=== PATIENT | male | born 1940 | race Caucasian/White ===

== ENCOUNTER 2018-05-29 19:26 | Emergency (ER) | payer MEDICARE, OTHER ==
[~2018-05-29] VITALS: Ht 172.7 cm; Wt 87.1 kg
[~2018-05-29 19:26] MED LIST: LEVO75TA6 PO; LOSA1TAB20 PO; LOSA50TA6 PO; LVT.088T PO
--- NOTE | 2018-05-29 19:35 | ED Psychosocial ---
General Stated Complaint: AGRESSIVE BEHAVIOR Source: patient, EMS, [facility] records Exam Limitations: clinical condition (dementia) History of Present Illness Date Seen by Provider: May 29, 2018 Time Seen by Provider: 19:28 Initial Comments The patient presents to ER by private conveyance from [facility] with chief complaint of aggressive behaviors towards staff and they want him sent somewhere for [facility]. Before being at the [facility] he was at [facility] in [place], [place]. For that he was living at home with his girlfriend. She has a history of dementia. EMS reports the patient is calm, redirectable and apologizing. Allergies and Home Medications Allergies Coded Allergies: aspirin (Unverified Allergy, Mild, Hives, 07/09/07) codeine (Unverified Allergy, Mild, Hives, 07/09/07) Home Medications Levothyroxine Sodium 88 Mcg Tab, 88 MCG PO DAILY, (Reported) Losartan Potassium 50 Mg Tablet, 50 MG PO DAILY, (Reported) Patient Home Medication List Home Medication List Reviewed: Yes Review of Systems Constitutional: No chills, No fever, No malaise, No weakness EENTM: No hearing loss, No ear pain Respiratory: No cough, No short of breath Cardiovascular: No chest pain, No edema Gastrointestinal: No abdominal pain, No constipation, No diarrhea Genitourinary: No discharge, No dysuria Musculoskeletal: No back pain, No joint pain Past Lcuqyya-Dzcgcq-Ziwnup Hx Patient Social History Alcohol Use: Denies Use Recreational Drug Use: No Smoking Status: Never a Smoker Immunizations Up To Date Date of Influenza Vaccine: Apr 29, 2014 Physical Exam Vital Signs - First Documented 05/29/18 19:26 Temp 98.0 Pulse 90 Resp 17 B/P (MAP) 92/67 (75) Capillary Refill : Height, Weight, BMI Height: 5'8.00" Weight: 192lbs. oz. 87.954187oh; BMI Method: General Appearance: WD/WN, no apparent distress HEENT: PERRL/EOMI, normal ENT inspection, TMs normal, pharynx normal Neck: non-tender, full range of motion, supple, normal inspection Respiratory: chest non-tender, lungs clear, normal breath sounds, no respiratory distress, no accessory muscle use Cardiovascular: normal peripheral pulses, regular rate, rhythm Gastrointestinal: normal bowel sounds, non tender, soft Neurologic/Psychiatric: alert, normal mood/affect, other (oriented to person and place but not time or situation. Mild agitation and that he wants to keep getting up and walk around but is somewhat redirectable. Requires one-on-one sitter.) Appearance/Memory: appropriate appearance, neat, impaired insight, impaired recent memory Behavior/Eye Contact: cooperative, good eye contact, normal speech, other ( wondering constantly) Thoughts/Hallucinations: no apparent hallucination; No delusions Skin: normal color, warm/dry Progress/Results/Core Measures Results/Orders Lab Results Laboratory Tests Test 05/29/18 19:42 05/29/18 20:15 Range/Units Urine Color YELLOW Urine Clarity CLEAR Urine pH 6.5 5-9 Urine Specific Equality 1.015 L 1.016-1.022 Urine Protein 1+ H NEGATIVE Urine Glucose (UA) NEGATIVE NEGATIVE Urine Ketones NEGATIVE NEGATIVE Urine Nitrite NEGATIVE NEGATIVE Urine Bilirubin NEGATIVE NEGATIVE Urine Urobilinogen NORMAL NORMAL MG/DL Urine Leukocyte Esterase NEGATIVE NEGATIVE Urine RBC (Auto) NEGATIVE NEGATIVE Urine RBC NONE /HPF Urine WBC NONE /HPF Urine Squamous Epithelial Cells RARE /HPF Urine Crystals NONE /LPF Urine Bacteria NEGATIVE /HPF Urine Casts NONE /LPF Urine Mucus SMALL H /LPF Urine Other /HPF Urine Culture Indicated NO White Blood Count 4.4 4.3-11.0 10^3/uL Red Blood Count 3.60 L 4.35-5.85 10^6/uL Hemoglobin 11.7 L 13.3-17.7 G/DL Hematocrit 35 L 40-54 % Mean Corpuscular Volume 96 80-99 FL Mean Corpuscular Hemoglobin 33 25-34 PG Mean Corpuscular Hemoglobin Concent 34 32-36 G/DL Red Cell Distribution Width 13.8 10.0-14.5 % Platelet Count 83 L 130-400 10^3/uL Mean Platelet Volume 9.8 7.4-10.4 FL Neutrophils (%) (Auto) 67 42-75 % Lymphocytes (%) (Auto) 13 12-44 % Monocytes (%) (Auto) 10 0-12 % Eosinophils (%) (Auto) 10 0-10 % Basophils (%) (Auto) 1 0-10 % Neutrophils # (Auto) 2.9 1.8-7.8 X 10^3 Lymphocytes # (Auto) 0.6 L 1.0-4.0 X 10^3 Monocytes # (Auto) 0.4 0.0-1.0 X 10^3 Eosinophils # (Auto) 0.4 H 0.0-0.3 10^3/uL Basophils # (Auto) 0.0 0.0-0.1 10^3/uL Sodium Level 138 135-145 MMOL/L Potassium Level 4.0 3.6-5.0 MMOL/L Chloride Level 104 98-107 MMOL/L Carbon Dioxide Level 20 L 21-32 MMOL/L Anion Gap 14 5-14 MMOL/L Blood Urea Nitrogen 10 7-18 MG/DL Creatinine 0.98 0.60-1.30 MG/DL Estimat Glomerular Filtration Rate > 60 BUN/Creatinine Ratio 10 Glucose Level 120 H 70-105 MG/DL Calcium Level 9.0 8.5-10.1 MG/DL Corrected Calcium 8.9 8.5-10.1 MG/DL Total Bilirubin 0.7 0.1-1.0 MG/DL Aspartate Amino Transf (AST/SGOT) 28 5-34 U/L Alanine Aminotransferase (ALT/SGPT) 19 0-55 U/L Alkaline Phosphatase 55 40-136 U/L Total Protein 7.0 6.4-8.2 GM/DL Albumin 4.1 3.2-4.5 GM/DL My Orders Orders - TERRI KUMAR Cbc With Automated Diff (05/29/18 19:33) Comprehensive Metabolic Panel (05/29/18 19:33) Ua Culture If Indicated (05/29/18 19:33) Lorazepam Injection (Ativan Injection) (05/29/18 19:53) Lorazepam Injection (Ativan Injection) (05/29/18 21:15) Haloperidol Injection (Haldol Injectio (05/29/18 22:00) Medications Given in ED Current Medications Medications Dose Ordered Sig/Lizzy Route Start Time Stop Time Status Last Admin Dose Admin Lorazepam 2 mg STK-MED ONCE .ROUTE 05/29/18 19:53 05/29/18 19:57 DC 05/29/18 19:57 2 MG Vital Signs/I&O 05/29/18 19:26 Temp 98.0 Pulse 90 Resp 17 B/P (MAP) 92/67 (75) Progress Progress Note #1: Time: 21:50 Progress Note Called [facility] for the patient's been before and discussed the case and they will put it in further screener. The screener will call us back. They mention that while he was there Ativan seemed to high pain up and Haldol seemed to help calm him down better than anything. custodial staff assures us that gave him Haldol before he left. Were going to go ahead and give him 5 mg parenteral Haldol now. He has not been aggressive or hitting cussing or trying to bite however he does require constant redirection as usually is trying to get up out of bed and wander around. Progress Note #2: Time: 22:30 Progress Note Discussed the case with González Burrell the on-call screener for [facility]. He remembers the patient and advises to Haldol seems to work better than Ativan. Either way he says they do not have the staff this weekend bring him back in and if we wanted to go inpatient he would recommend [facility] or [facility]. At this time the patient for the past hours been sleeping and woke him a couple times talking in the last few wanted to go back home and he said yes and went back to sleep. We did not end up giving him the dose of Haldol just 2 mg of Ativan IM when he first got here. Discussed the case with Jeannie his daughter and the POA. She is very familiar with him and on her way to [facility] about half hour out. I discussed with her that he's actually been sleeping for the past hour and not been as much trouble. She relates to me that the nursing staff was told her that in the past he's been spitting the pills out so she wondered if maybe an IM route would be better than oral route for as needed Haldol. I agree that if that's a problem with the write for IM Haldol instead. At this time is calm and behaving himself without a sitter so we'll let him go home to the [facility] and write him for some new orders for Haldol parenterally. Departure Impression Primary Impression: Agitation Disposition: 01 HOME, SELF-CARE Condition: Improved Departure-Patient Inst. Decision time for Depature: 22:38 Referrals: DA SMITH MD (PCP/Family) Primary Care Physician Patient Instructions: Anxiety, Adult (DC) Add. Discharge Instructions: Haldol 5 mg IM every 4 hours as needed for agitation or anxiety. Follow-up with primary care as necessary. For uncontrollable agitation not resolve with Haldol, Ativan and redirection you may re-present to the ER. Scripts Haloperidol Lactate (Haldol) 5 Mg/1 Ml Ampul 5 MG IJ Q4H PRN for AGITATION for 30 Days, #10 ML 0 Refills Prov: TERRI KUMAR 05/29/18 TERRI KUMAR May 29, 2018 19:35
[2018-05-29 19:51] LABS: BILIRUBIN,URINE NEGATIVE (NEGATIVE); CLARITY,URINE CLEAR; COLOR,URINE YELLOW; GLUCOSE, URINE (UA) NEGATIVE (NEGATIVE); KETONES,URINE NEGATIVE (NEGATIVE); LEUKOCYTE ESTERASE ,URINE NEGATIVE (NEGATIVE); NITRITE,URINE NEGATIVE (NEGATIVE); PH,URINE 6.5 (5-9); PROTEIN,URINE 1+ (NEGATIVE); UROBILINOGEN,URINE NORMAL (NORMAL)
[2018-05-29] MEDS ORDERED: LORazepam INJ 2 MG/ML (ATIVAN) VIAL ONE (19:53)
[2018-05-29 19:57] LABS: BACTERIA,URINE NEGATIVE /HPF; SQUAMOUS EPITHELIAL CELL,UR RARE /HPF
[2018-05-29 20:21] LABS: BASOPHILS % (AUTO) 1 % (0-10); EOSINOPHILS # (AUTO) 0.4 10^3/uL (0.0-0.3); EOSINOPHILS % (AUTO) 10 % (0-10); HEMATOCRIT 35 % (40-54); HEMOGLOBIN 11.7 G/DL (13.3-17.7); LYMPHOCYTES # (AUTO) 0.6 X 10^3 (1.0-4.0); LYMPHOCYTES % (AUTO) 13 % (12-44); MEAN CORPUSCULAR HEMOGLOBIN 33 PG (25-34); MEAN CORPUSCULAR HGB CONC 34 G/DL (32-36); MEAN CORPUSCULAR VOLUME 96 FL (80-99); MEAN PLATELET VOLUME 9.8 FL (7.4-10.4); MONOCYTES # (AUTO) 0.4 X 10^3 (0.0-1.0); MONOCYTES % (AUTO) 10 % (0-12); NEUTROPHILS # (AUTO) 2.9 X 10^3 (1.8-7.8); NEUTROPHILS % (AUTO) 67 % (42-75); PLATELET COUNT 83 10^3/uL (130-400); RED CELL DISTRIBUTION WIDTH 13.8 % (10.0-14.5); WHITE BLOOD COUNT 4.4 10^3/uL (4.3-11.0)
[2018-05-29 20:38] LABS: ALANINE AMINOTRANSFERASE 19 U/L (0-55); ALBUMIN 4.1 GM/DL (3.2-4.5); ALKALINE PHOSPHATASE 55 U/L (40-136); BILIRUBIN,TOTAL 0.7 MG/DL (0.1-1.0); BUN/CREATININE RATIO 10; CARBON DIOXIDE 20 MMOL/L (21-32); CHLORIDE 104 MMOL/L (98-107); CREATININE SERUM 0.98 MG/DL (0.60-1.30); GFR ESTIMATED > 60; GLUCOSE 120 MG/DL (70-105); SODIUM 138 MMOL/L (135-145)
[2018-05-29] MEDS ORDERED: LORazepam INJ 2 MG/ML (ATIVAN) VIAL IVP ONE (21:15)
[2018-05-29] MEDS: HALOPERIDOL 5 MG/ML (HALDOL) AMP IM ONE ×2 (21:51→22:55)
[2018-05-29] MEDS ORDERED: HALO5AMP IJ (22:40)
[2018-05-29 23:02] VITALS: BP 92/67
--- NOTE | 2018-05-29 23:05 | NUR ---
DC'D WITH DAUGHTER WHO IS DRIVING TO [facility] VIA PRIVATE VEHICLE.
== END 2018-05-29 23:05 | disposition home or self-care (01) ==
LOC: EDUNIT# 19:26 → ER 19:27
DX: R45.1 Restlessness and agitation (principal); F03.90 Unspecified dementia, unspecified severity, without behavioral disturbance, psychotic disturbance, mood disturbance, and anxiety; Z88.6 Allergy status to analgesic agent; Z88.5 Allergy status to narcotic agent
CPT/HCPCS: 36415; 80053; 81000; 85025; 96372